=== PATIENT | male | born 1935 | race Caucasian/White ===

== ENCOUNTER → 2017-07-05 | Day surgery (SDC) | payer MEDICARE, BC ==
[2017-07-03 12:08] VITALS: BMI 18.0
[~2017-07-05] MED LIST: ALPRAZolam 0.25 MG TAB PO PRN; ASPIRIN 325 MG TAB PO STA; IODIXANOL 320 MG/ML 100 ML INTRAARTER ONE; LIDOCAINE 2% INJ 20 MG/ML SQ ONE; MIDAZOLAM 2 MG/2 ML VIAL IVP ONE; SODIUM CHLORIDE 0.9% 1,000 ML IV ONE; SODIUM CHLORIDE 0.9% 1,000 ML IV SCH; SODIUM CHLORIDE 0.9% 1,000 ML in EMPTY BAG 1 BAG IV ONE
[2017-07-05 06:53] VITALS: RESP 16; TEMP 98.2
[2017-07-05 06:53] LABS: Basophils % (A) 1 %; CH 32.3; Eosinophils # (A) 0.2 k/uL (0-0.7); Eosinophils % (A) 3 %; HCT 40.3 % (39.0-53.0); HDW 2.34; HGB 13.2 gm/dL (13.0-17.5); Luc # (Auto) 0.15; Luc % (Auto) 3; Lymphocytes # (A) 0.7 k/uL (1.0-4.8); Lymphocytes % (A) 14 %; MCH 33.2 pg (25.0-35.0); MCHC 32.6 g/dL (31.0-37.0); MCV 101.7 fL (80.0-100.0); Macrocytosis Slight; Mean Platelet Volume 7.1; Monocytes # (A) 0.4 k/uL (0-1.0); Monocytes % (A) 7 %; Neutrophils # (A) 3.7 k/uL (1.3-7.7); Neutrophils % (A) 73 %; RBC 3.96 m/uL (4.30-5.90); RDW 12.9 % (11.5-15.5); WBC 5.1 k/uL (3.8-10.6); WBC (Perox) 5.39
[2017-07-05 07:12] LABS: Anion Gap 7 mmol/L; Blood Urea Nitrogen 14 mg/dL (9-20); Carbon Dioxide 23 mmol/L (22-30); Chloride 106 mmol/L (98-107); Glucose 82 mg/dL (74-99); Non-African American GFR(MDRD) >60 (>60 ml/min/1.73 sqM); Sodium 136 mmol/L (137-145)
[2017-07-05 07:32] LABS: Potassium 5.1 mmol/L (3.5-5.1)
--- NOTE | 2017-07-05 09:05 | AN ---
ANGIOGRAPHY REPORT DATE OF SERVICE: 07/05/2017. PERFORMING PHYSICIAN: Heriberto Epperson MD, long term care pharmacist. PROCEDURE PERFORMED: 1. Abdominal aortogram. 2. Bilateral lower extremity runoff. INDICATIONS: This is a pleasant 82-year-old who is an active gentleman with a known history off peripheral tear disease and prior stenting of the right iliac artery, was experiencing bilateral lower extremity discomfort. He was diagnosed with intermittent claudication. He was brought today to undergo a peripheral angiogram. APPROACH: Right common femoral artery. COMPLICATIONS: None. LEVEL OF SEDATION: Moderate with sedation length of 20 minutes. PROCEDURE DESCRIPTION: After obtaining informed consent, the patient was brought to the cardiac cath lab technologist. The right common femoral artery was cannulated using micropuncture technique, the micropuncture wire passed easily then I placed a 5-[place] sheath in the right common femoral artery. Subsequently I did an abdominal aortogram and bilateral lower extremity runoff using 5-[place] pigtail catheter, which was initially placed at the level of the renal arteries, then it was pulled into above the bifurcation of the aorta, right and left common iliac arteries. The procedure was completed without any complications. SELECTIVE ANGIOGRAM: 1. The aorta has mild occlusive disease and mild aneurysmal dilatation as well. 2. Common iliac arteries. The right common iliac artery appeared to be stented and the left common iliac artery appeared to have a lesion, seems to be in the range of 70%. 3. External iliac arteries. The right and left external iliac arteries appear to have mild disease only. 4. Common femoral arteries. The right and left common femoral arteries are angiographically normal. 5. Profunda. The right and left profunda are patent. 6. SFA. The distal right SFA and distal left SFA by the Felix canal appear to have lesions in the range of 70% to 80%. 7. Popliteal. The right popliteal appears to have disease in the range of 70% and the left popliteal appeared to have disease in the range of 50%. 8. Below the knee. There are 2 vessel runoff below the knee bilaterally with posterior tibial and peroneal. CONCLUSION: 1. Severe disease involving the left common iliac artery with patent stent in the right common iliac artery. 2. Severe bilateral distal SFA disease. 3. Two vessel runoff below the knee bilaterally. POSTPROCEDURE MANAGEMENT: The patient will be be scheduled to undergo a PLASTER FORM MAKER of bilateral lower extremities in two separate sessions. MMODL / IJN: [id number] /
--- NOTE | 2017-07-05 11:36 | IR ---
Fluoroscopy HISTORY: Pain 2.42 minutes fluoroscopy time supplied to the referring clinician. 171 intraoperative C-arm images d ocument the procedure. See dictated report from cardiology.
[2017-07-05 15:35] VITALS: BP 124/58; PULSE 60
== END ==
LOC: CATHCVL 06:15
PROVIDERS: ATTEND Internal Medicine Interventional Cardiology
DX: I70.213 Atherosclerosis of native arteries of extremities with intermittent claudication, bilateral legs (principal); I10 Essential (primary) hypertension; I25.5 Ischemic cardiomyopathy; E78.2 Mixed hyperlipidemia; F17.210 Nicotine dependence, cigarettes, uncomplicated; Z95.1 Presence of aortocoronary bypass graft; Z82.49 Family history of ischemic heart disease and other diseases of the circulatory system; Z79.899 Other long term (current) drug therapy; Z95.810 Presence of automatic (implantable) cardiac defibrillator; Z79.02 Long term (current) use of antithrombotics/antiplatelets; Z79.82 Long term (current) use of aspirin; Z95.820 Peripheral vascular angioplasty status with implants and grafts
CPT/HCPCS: 36200; 75625; 75716; 99152; 80048; 85025; C1769 ×3; C1894; J2001; J2250; Q9967

== ENCOUNTER 2018-09-26 16:01 | Inpatient (IN) | payer MEDICARE, BC ==
--- NOTE | 2018-09-26 16:23 | ED ---
Chest Pain HPI - General Chief Complaint: Chest Pain Stated Complaint: chest pain Time Seen by Provider: 09/26/18 16:01 Source: patient, family, EMS, RN notes reviewed Mode of arrival: EMS Limitations: no limitations - History of Present Illness Initial Comments: This 83-year-old male history of heart disease who has a AICD who is been having difficulty for the past 4 days with intermittent episodes of chest pressure and palpitations. His AICD went off today while he was driving he felt dizzy he had chest pressure that was low-grade. He was given aspirin and nitroglycerin prior to arrival here he has no pain at this time. He also some blurry vision while he was driving in this incident occurred. Again per family' s been having difficulty like this for the past several days at least. His AICD is 10 years old he is scheduled get a new battery in the near future. Currently he is asymptomatic he was getting dizzy when he was in upright position and finally when he was supine. MD Complaint: chest pain, other - Related Data Home Medications Medication Instructions Recorded Confirmed Atenolol [Tenormin] 50 mg PO DAILY 05/31/15 09/26/18 Levothyroxine Sodium [Synthroid] 37.5 mcg PO DAILY 05/31/15 09/26/18 Lisinopril [Zestril] 2.5 mg PO HS 05/31/15 09/26/18 Lovastatin [Mevacor] 20 mg PO HS 05/31/15 09/26/18 Aspirin 325 mg PO DAILY 08/17/16 09/26/18 Previous Rx's Medication Instructions Recorded Clopidogrel [Plavix] 75 mg PO DAILY #30 tab 06/17/15 Allergies Allergy/AdvReac Type Severity Reaction Status Date / Time No Known Allergies Allergy Verified 09/26/18 16:44 Review of Systems ROS Statement: Those systems with pertinent positive or pertinent negative responses have been documented in the HPI. ROS Other: All systems not noted in ROS Statement are negative. EKG Findings - EKG Results: EKG: interpreted by WILLI (Pacemaker rhythm. Chamber rate was 65. Interval 186 QRS duration 174 QT since QTC 472/490) Past Medical History Past Medical History: Cancer, Hearing Disorder / Deafness, Hyperlipidemia, Hypertension, Prostate Disorder, Thyroid Disorder, Vascular Disorder Additional Past Medical History / Comment(s): PAD. HX OF BOWEL CA 2005; Hx skin cancer. DEAF LT EAR, ELEM. LEGS "TIRE EASILY WHEN I WALK," PAIN IN LEGS RADIATE TO UPPER BACK. History of Any Multi-Drug Resistant Organisms: None Reported Past Surgical History: AICD Additional Past Surgical History / Comment(s): tristian cataracts. aortogram, Stent in rt leg., COLONOSCOPY Past Anesthesia/Blood Transfusion Reactions: No Reported Reaction Date of Last Stent Placement:: 03/2016 Type of Cardiac Device: AICD Device Placement Date:: 2003 or 2004 Past Psychological History: No Psychological Hx Reported Smoking Status: Current every day smoker Past Alcohol Use History: None Reported Past Drug Use History: None Reported - Past Family History Mother Family Medical History: No Reported History General Exam - General Exam Comments Initial Comments: This is a well-developed asthenic appearing male who is awake alert oriented 3 Limitations: no limitations General appearance: alert, in no apparent distress Head exam: Present: atraumatic, normocephalic, normal inspection Eye exam: Present: normal appearance, PERRL, EOMI. Absent: scleral icterus, conjunctival injection, periorbital swelling ENT exam: Present: normal exam, mucous membranes moist Neck exam: Present: normal inspection. Absent: tenderness, meningismus, lymphadenopathy Respiratory exam: Present: normal lung sounds bilaterally. Absent: respiratory distress, wheezes, rales, rhonchi, stridor Cardiovascular Exam: Present: regular rate, normal rhythm, normal heart sounds. Absent: systolic murmur, diastolic murmur, rubs, gallop, clicks GI/Abdominal exam: Present: soft, normal bowel sounds. Absent: distended, tenderness, guarding, rebound, rigid Extremities exam: Present: normal inspection, full ROM, normal capillary refill. Absent: tenderness, pedal edema, joint swelling, calf tenderness Back exam: Present: normal inspection Neurological exam: Present: alert, oriented X3, CN II-XII intact Psychiatric exam: Present: normal affect, normal mood Skin exam: Present: warm, dry, intact, normal color. Absent: rash Course Vital Signs 09/26/18 16:09 Temperature 97.3 F L Pulse Rate 76 Respiratory 18 Rate O2 Sat by Pulse 97 Oximetry Chest Pain MDM - MDM Imaging was reviewed no acute findings. Patient was seen by Dr. Quevedo in the emergency department the patient will be admitted for evaluation of pacemaker as well as chest pain. The case is discussed with urbano who is covering for Dr. Rivas who is covering for Dr. Ng Disposition Clinical Impression: Chest pain, Pacemaker complications Disposition: ADMITTED IP TO THIS HOSP Condition: Stable Referrals: Olegario Ng DO [Primary Care Provider] - 1-2 days
[2018-09-26 17:05] LABS: Basophils % (A) 1 %; Eosinophils # (A) 0.2 k/uL (0-0.7); Eosinophils % (A) 4 %; HCT 38.8 % (39.0-53.0); HGB 12.7 gm/dL (13.0-17.5); Lymphocytes # (A) 1.3 k/uL (1.0-4.8); Lymphocytes % (A) 24 %; MCH 32.4 pg (25.0-35.0); MCHC 32.8 g/dL (31.0-37.0); MCV 98.7 fL (80.0-100.0); Mean Platelet Volume 6.9; Monocytes # (A) 0.3 k/uL (0-1.0); Monocytes % (A) 7 %; Neutrophils # (A) 3.2 k/uL (1.3-7.7); Neutrophils % (A) 62 %; Platelet Count 174 k/uL (150-450); RBC 3.93 m/uL (4.30-5.90); RDW 13.1 % (11.5-15.5); WBC 5.1 k/uL (3.8-10.6)
[2018-09-26 17:08] LABS: INR 0.9 (<1.2); Partial Thromboplastin Time 25.7 sec (22.0-30.0)
--- NOTE | 2018-09-26 17:12 | XR ---
EXAMINATION TYPE: XR chest 2V DATE OF EXAM: 09/26/2018 COMPARISON: 05/31/2015 HISTORY: Chest pain TECHNIQUE: Frontal and lateral views of the chest are obtained. FINDINGS: There is no heart failure nor confluent pneumonic infiltrate. Thoracic aorta is atheromato us. Heart size is normal. There is no pleural effusion. There is left axillary pacemaker with the alexandr d tips in the right ventricle. Bony thorax is intact. IMPRESSION: No active cardiopulmonary disease. No change.
[2018-09-26 17:14] LABS: ALT 21 U/L (21-72); AST 21 U/L (17-59); Albumin 3.4 g/dL (3.5-5.0); Alkaline Phosphatase 85 U/L (38-126); Anion Gap 4 mmol/L; Blood Urea Nitrogen 19 mg/dL (9-20); Carbon Dioxide 25 mmol/L (22-30); Chloride 112 mmol/L (98-107); Glucose 92 mg/dL (74-99); Magnesium 2.1 mg/dL (1.6-2.3); Potassium 4.5 mmol/L (3.5-5.1); Sodium 141 mmol/L (137-145); Total Bilirubin 0.3 mg/dL (0.2-1.3); Total Protein 6.3 g/dL (6.3-8.2)
[2018-09-26 17:15] LABS: Creatine Kinase 32 U/L (55-170)
[2018-09-26 17:29] LABS: Creatine Kinase MB 0.6 ng/mL (0.0-2.4); Troponin I <0.012 ng/mL (0.000-0.034)
[2018-09-26] MEDS ORDERED: NITROGLYCERIN SL TABS 0.4 MG TAB SUBLINGUAL PRN (18:58)
[2018-09-26] MEDS ORDERED: LISINOPRIL 2.5 MG TAB PO SCH (21:00)
[2018-09-26] MEDS: ATORVASTATIN 10 MG TAB PO SCH (22:34)
[2018-09-26 22:57] LABS: Creatine Kinase 26 U/L (55-170)
[2018-09-26 23:07] LABS: Creatine Kinase MB 0.5 ng/mL (0.0-2.4); Troponin I <0.012 ng/mL (0.000-0.034)
[2018-09-26 23:51] VITALS: BMI 17.5
[2018-09-27 05:43] LABS: Cholesterol 143 mg/dL (<200); HDL Cholesterol 53 mg/dL (40-60); LDL Cholesterol,Calculated 80 mg/dL (0-99); Triglycerides 49 mg/dL (<150)
[2018-09-27 06:09] LABS: Creatine Kinase 28 U/L (55-170)
[2018-09-27] MEDS: LEVOTHYROXINE 75 MCG TAB PO SCH (06:09)
[2018-09-27 06:22] LABS: Creatine Kinase MB 0.5 ng/mL (0.0-2.4); Troponin I <0.012 ng/mL (0.000-0.034)
[2018-09-27] MEDS ORDERED: ATENOLOL 50 MG TAB PO SCH (09:00)
[2018-09-27] MEDS ORDERED: ASPIRIN 325 MG TAB PO SCH (09:00)
[2018-09-27] MEDS: SODIUM CHLORIDE 0.9% 1,000 ML IV SCH (10:08)
[2018-09-27] MEDS: CLOPIDOGREL 75 MG TAB PO SCH (10:09)
[2018-09-27] MEDS: ASPIRIN 325 MG TAB PO SCH (10:09)
--- NOTE | 2018-09-27 14:17 | P.CRDCN ---
<Arianne Torres - Last Filed: 09/27/18 13:58> History of Present Illness History of present illness: This is a pleasant 83-year-old male past medical history significant for coronary artery disease s/p stenting to OM in 2006, ischemic cardiomyopathy , s/p AICD placement, peripheral vascular disease status post atherectomy of the right femoral artery, hypertension and dyslipidemia. We have been asked to see him in consultation for evaluation of pacemaker. He follows with Dr. Brock in the office. He states Sunday morning he was at home cooking camarena when he started feeling light headed, chest pressure, and vision changes. The symptoms lasted 3-4 seconds at a time and occurred 3 separate times. He went to lay down and the pressure in his chest subsided. He had no reoccurrences the rest of the day Sunday. He called office Sunday and was advised to come to ED. however he decided not to. Yesterday while driving to [employer] for errands he developed pressure in his chest with mild dizziness, not a intense as Sunday. This lasted very brief and subsided on its own. Again while he was walking through [employer] 10 minutes later he again had the same symptoms. He states he has had no recurrence since arrival to the hospital. He is seen resting comfortably in bed in no acute distress. He denies symptoms of chest discomfort, shortness of breath, dizziness or palpitations. EKG reveals AV paced rhythm. Chest x-ray is negative for an acute cardiopulmonary process. Laboratory data reviewed, WBC 5.1, hemoglobin 12.7, platelets 174, sodium 141, potassium 4.5, creatinine 0.8, magnesium 2.1, cardiac enzymes negative 3, NTproBNP 1170, LDL 80. Current cardiac medications include aspirin 325 mg daily, atenolol 50 Cynthia grams daily, Plavix 75 mg daily, lisinopril 2.5 mg daily and lovastatin 20 mg daily. Most recent echocardiogram obtained in the office reveals global concentric left ventricular systolic dysfunction with ejection fraction 30%, moderate aortic regurgitation, moderate aortic stenosis, mild to moderate mitral regurgitation and heavily calcified aortic valve. Most recent stress test performed in the office January 2018 revealed a fixed inferior and inferior apical wall defect suggestive of prior myocardial infarction with reduced ejection fraction 40% and no evidence of stress-induced ischemia. At the time of my exam: CONSTITUTIONAL: Denies fever. Denies chills. EYES: Denies blurred vision. Denies vision changes. Denies eye pain. EARS, NOSE, MOUTH & THROAT: Denies headache. Denies sore throat. Denies ear pain. CARDIOVASCULAR: Denies chest pain. Denies shortness of breath. Denies orthopnea. Denies PND. Denies palpitations. RESPIRATORY: Denies cough. GASTROINTESTINAL: Denies abdominal pain. Denies diarrhea. Denies constipation. Denies nausea. Denies vomiting. MUSCULOSKELETAL: Denies myalgias. INTEGUMENTARY: Denies pruitis. Denies rash. NEUROLOGIC: Denies numbness. Denies tingling. Denies weakness. PSYCHIATRIC: Denies anxiety. Denies depression. ENDOCRINE: Denies fatigue. Denies weight change. Denies polydipsia. Denies polyurina. GENITOURINARY: Denies burning, hematuria or urgency with micturation. HEMATOLOGIC: Denies history of anemia. Denies bleeding. Blood pressure 111/60 herat rate 66 afebrile maintaining oxygen saturation on room air GENERAL: This is a 83-year-old male in no apparent distress at the time of my examination. Frail. HEENT: Head is atraumatic, normocephalic. Pupils are equal, round. Sclerae anicteric. Conjunctivae are clear. Mucous membranes of the mouth are moist. Neck is supple. There is no jugular venous distention. No carotid bruit is heard. LUNGS: Clear to auscultation no wheezes, rales or rhonchi. No chest wall tenderness is noted on palpation or with deep breathing. HEART: Regular rate and rhythm with systolic ejection murmur at the base, no rubs or gallops. S1 and S2 heard. ABDOMEN: Soft, nontender. Bowel sounds are heard. No organomegaly noted. EXTREMITIES: No evidence of peripheral edema and no calf tenderness noted. VASCULAR: Radial and dorsalis pedis pulses palpated, no evidence of clubbing. NEUROLOGIC: Patient is awake, alert and oriented x3. ASSESSMENT Chest pain, atypical. An acute coronary event has been ruled out with negative cardiac enzymes. Dizziness and presyncope History of coronary artery disease Ischemic cardiomyopathy Status post AICD placement Hypertension Dyslipidemia Chronic nicotine dependence PLAN Acute coronary event has been ruled out. Interrogate device, Cenoplex. Obtain 2-D echocardiogram and Doppler study to assess cardiac structure and function. Check d-dimer. Check for orthostatic changes. Further recommendations to follow based upon clinical course. Thank you kindly for this consultation. Nurse Practitioner note has been reviewed, I agree with a documented findings and plan of care. Patient was seen and examined. Past Medical History Past Medical History: Cancer, Hearing Disorder / Deafness, Hyperlipidemia, Hypertension, Prostate Disorder, Thyroid Disorder, Vascular Disorder Additional Past Medical History / Comment(s): PAD. HX OF BOWEL CA 2004; Hx skin cancer. DEAF LT EAR, [place]SI[place]. LEGS "TIRE EASILY WHEN I WALK," PAIN IN LEGS RADIATE TO UPPER BACK. History of Any Multi-Drug Resistant Organisms: None Reported Past Surgical History: AICD Additional Past Surgical History / Comment(s): tristian cataracts. aortogram, Stent in rt leg., COLONOSCOPY Past Anesthesia/Blood Transfusion Reactions: No Reported Reaction Date of Last Stent Placement:: 03/2016 Type of Cardiac Device: AICD Device Placement Date:: 2003 or 2004 Past Psychological History: No Psychological Hx Reported Smoking Status: Current every day smoker Past Alcohol Use History: None Reported Additional Past Alcohol Use History / Comment(s): Has smoked since age of 18, smokes 1 PPD Past Drug Use History: None Reported - Past Family History Mother Family Medical History: No Reported History Medications and Allergies Home Medications Medication Instructions Recorded Confirmed Type Levothyroxine Sodium [Synthroid] 37.5 mcg PO DAILY 05/31/15 09/26/18 History Lovastatin [Mevacor] 20 mg PO HS 05/31/15 09/26/18 History Clopidogrel [Plavix] 75 mg PO DAILY #30 tab 06/17/15 09/26/18 Rx Aspirin 325 mg PO DAILY 08/17/16 09/26/18 History Metoprolol Tartrate 25 mg PO BID #60 tab 09/27/18 Rx Allergies Allergy/AdvReac Type Severity Reaction Status Date / Time No Known Allergies Allergy Verified 09/26/18 16:44 Physical Exam Vitals: Vital Signs Temp Pulse Pulse Resp BP BP Pulse Ox 09/27/18 07:35 97.5 F L 63 16 114/56 96 09/27/18 04:00 60 16 09/27/18 03:55 98.3 F 60 16 152/66 98 09/27/18 00:00 52 L 16 09/26/18 23:53 52 L 16 09/26/18 23:36 97.4 F L 52 L 16 128/62 99 09/26/18 22:31 97.2 F L 57 L 16 125/63 94 L 09/26/18 20:02 54 L 16 09/26/18 19:00 49 L 18 118/59 98 09/26/18 18:00 49 L 18 117/57 98 09/26/18 16:09 97.3 F L 76 18 97 Intake and Output 09/26/18 09/27/18 09/27/18 22:59 06:59 14:59 Other: Voiding Method Toilet Weight 50.802 kg Results 09/26/18 16:48 09/26/18 16:48 Cardiac Enzymes 09/26/18 09/26/18 09/26/18 Range/Units 16:48 16:48 22:09 AST 21 (17-59) U/L CK-MB (CK-2) 0.6 0.5 (0.0-2.4) ng/mL Troponin I <0.012 <0.012 (0.000-0.034) ng/mL 09/27/18 Range/Units 05:02 AST (17-59) U/L CK-MB (CK-2) 0.5 (0.0-2.4) ng/mL Troponin I <0.012 (0.000-0.034) ng/mL Coagulation 09/26/18 Range/Units 16:48 PT 10.0 (9.0-12.0) sec APTT 25.7 (22.0-30.0) sec Lipids 09/27/18 Range/Units 05:02 Triglycerides 49 (<150) mg/dL Cholesterol 143 (<200) mg/dL HDL Cholesterol 53 (40-60) mg/dL CBC 09/26/18 Range/Units 16:48 WBC 5.1 (3.8-10.6) k/uL RBC 3.93 L (4.30-5.90) m/uL Hgb 12.7 L (13.0-17.5) gm/dL Hct 38.8 L (39.0-53.0) % Plt Count 174 (150-450) k/uL Comprehensive Metabolic Panel 09/26/18 Range/Units 16:48 Sodium 141 (137-145) mmol/L Potassium 4.5 (3.5-5.1) mmol/L Chloride 112 H (98-107) mmol/L Carbon Dioxide 25 (22-30) mmol/L BUN 19 (9-20) mg/dL Creatinine 0.81 (0.66-1.25) mg/dL Glucose 92 (74-99) mg/dL Calcium 9.0 (8.4-10.2) mg/dL AST 21 (17-59) U/L ALT 21 (21-72) U/L Alkaline Phosphatase 85 (38-126) U/L Total Protein 6.3 (6.3-8.2) g/dL Albumin 3.4 L (3.5-5.0) g/dL Current Medications Generic Name Dose Route Start Last Admin Trade Name Freq PRN Reason Stop Dose Admin Aspirin 325 mg 09/27/18 09:00 Aspirin PO DAILY [facility] Atenolol 50 mg 09/27/18 09:00 Tenormin PO DAILY [facility] Atorvastatin Calcium 10 mg 09/26/18 21:00 09/26/18 22:34 Lipitor PO 10 mg HS [facility] Administration Clopidogrel Bisulfate 75 mg 09/27/18 09:00 Plavix PO DAILY [facility] Sodium Chloride 1,000 mls @ 20 mls/hr 09/26/18 19:00 Saline 0.9% IV .Q24H [facility] Levothyroxine Sodium 37.5 mcg 09/27/18 06:30 09/27/18 06:09 Synthroid PO 37.5 mcg 0630 [facility] Administration Lisinopril 2.5 mg 09/26/18 21:00 09/26/18 22:35 Zestril PO 2.5 mg HS [facility] Administration Nitroglycerin 0.4 mg 09/26/18 18:58 Nitrostat SUBLINGUAL Q5M PRN Chest Pain Intake and Output 09/26/18 09/27/18 09/27/18 22:59 06:59 14:59 Other: Voiding Method Toilet Weight 50.802 kg 09/26/18 16:48 09/26/18 16:48 <Byron Quevedo - Last Filed: 09/28/18 11:46> Physical Exam Vitals: Vital Signs Temp Pulse Pulse Pulse Pulse Resp BP 09/28/18 09:48 67 66 61 97/49 09/28/18 08:18 97.9 F 66 16 09/28/18 07:31 09/28/18 04:00 16 09/28/18 03:52 98.3 F 60 16 09/28/18 00:00 99.0 F 66 16 09/27/18 21:15 99.2 F 09/27/18 20:00 16 09/27/18 19:34 101.9 F H 68 16 09/27/18 15:44 97.5 F L 52 L 54 L 61 18 130/66 BP BP BP Pulse Ox 09/28/18 09:48 94/52 92/47 09/28/18 08:18 106/57 95 09/28/18 07:31 95 09/28/18 04:00 09/28/18 03:52 96/50 96 09/28/18 00:00 91/47 93 L 09/27/18 21:15 09/27/18 20:00 09/27/18 19:34 108/46 92 L 09/27/18 15:44 115/53 145/67 97 Intake and Output 09/27/18 09/28/18 09/28/18 22:59 06:59 14:59 Intake Total 240 Balance 240 Intake: Oral 240 Other: Voiding Method Toilet Toilet Toilet # Voids 1 2 Weight 51.3 kg Results 09/26/18 16:48 09/26/18 16:48 Current Medications Generic Name Dose Route Start Last Admin Trade Name Freq PRN Reason Stop Dose Admin Acetaminophen 650 mg 09/27/18 21:00 Tylenol Tab PO Q4HR PRN Fever and/ or Pain Aspirin 325 mg 09/27/18 09:00 09/28/18 08:24 Aspirin PO 325 mg DAILY [facility] Administration Atorvastatin Calcium 10 mg 09/26/18 21:00 09/27/18 22:22 Lipitor PO 10 mg HS [facility] Administration Clopidogrel Bisulfate 75 mg 09/27/18 09:00 09/28/18 08:24 Plavix PO 75 mg DAILY [facility] Administration Sodium Chloride 1,000 mls @ 20 mls/hr 09/26/18 19:00 09/28/18 07:56 Saline 0.9% IV Not Given .Q24H [facility] Levothyroxine Sodium 37.5 mcg 09/27/18 06:30 09/28/18 06:57 Synthroid PO 37.5 mcg 0630 [facility] Administration Metoprolol Tartrate 25 mg 09/28/18 09:00 09/28/18 08:25 Lopressor PO 25 mg BID [facility] Administration Nitroglycerin 0.4 mg 09/26/18 18:58 Nitrostat SUBLINGUAL Q5M PRN Chest Pain Intake and Output 09/27/18 09/28/18 09/28/18 22:59 06:59 14:59 Intake Total 240 Balance 240 Intake: Oral 240 Other: Voiding Method Toilet Toilet Toilet # Voids 1 2 Weight 51.3 kg 09/26/18 16:48 09/26/18 16:48
--- NOTE | 2018-09-27 15:23 | P.DS ---
Providers Date of admission: 09/26/18 18:58 Attending physician: Raquel Rivas Consults: 09/26/18 18:58 Consult Physician Urgent Consulting Provider: Byron Quevedo Consult Reason/Comments: Pacemaker evaluation Do you want consulting provider notified?: Already Contacted Primary care physician: Olegario Ng [facility] Course: Refer to my [facility] Patient Condition at Discharge: Stable Plan - Discharge Summary Discharge Rx Participant: No New Discharge Prescriptions: New Metoprolol Tartrate 25 mg PO BID #60 tab Discontinued Lisinopril [Zestril] 2.5 mg PO HS Atenolol [Tenormin] 50 mg PO DAILY No Action Lovastatin [Mevacor] 20 mg PO HS Levothyroxine Sodium [Synthroid] 37.5 mcg PO DAILY Clopidogrel [Plavix] 75 mg PO DAILY #30 tab Aspirin 325 mg PO DAILY Discharge Medication List Levothyroxine Sodium [Synthroid] 37.5 mcg PO DAILY 05/31/15 [History] Lovastatin [Mevacor] 20 mg PO HS 05/31/15 [History] Clopidogrel [Plavix] 75 mg PO DAILY #30 tab 06/17/15 [Rx] Aspirin 325 mg PO DAILY 08/17/16 [History] Metoprolol Tartrate 25 mg PO BID #60 tab 09/27/18 [Rx] Follow up Appointment(s)/Referral(s): Olegario Ng DO [Primary Care Provider] - 3 Days Discharge Disposition: HOME SELF-CARE
--- NOTE | 2018-09-27 15:23 | P.HPIM ---
History of Present Illness 83-year-old pleasant gentleman with the AICD for some heart rhythm abnormality as per the patient came in with compensative dizziness. She denied any history of can start failure patient does have history of breast disease patient also had a brief episode of chest pressure like sensation on lasted for 2 minutes nonexertional not associated with food no diaphoresis appears to be noncardiac very mild pressure like sensation nonradiating and nonpleuritic in nature. He denied any present chest pain at this time his main symptom was dizziness. Patient blood pressure is low normal although I do consider this as low for his age. Patient didn't allow will be which will be switched to metoprolol and the patient is on low-dose of lisinopril I don't see a reason for lisinopril dose will be discontinued patient does not have any history of congestive heart failure no evidence of failure at this time. She is not diabetic either. Patient denied any fever chills nausea vomiting. Denied any cough. Review of Systems REVIEW OF SYSTEMS: CONSTITUTIONAL: No fever, no malaise, no fatigue. HEENT: No recent visual problems or hearing problems. Denied any sore throat. CARDIOVASCULAR: No chest pain, orthopnea, PND, no palpitations, no syncope. PULMONARY: No shortness of breath, no cough, no hemoptysis. GASTROINTESTINAL: No diarrhea, no nausea, no vomiting, no abdominal pain. NEUROLOGICAL: No headaches, no weakness, no numbness. HEMATOLOGICAL: Denies any bleeding or petechiae. GENITOURINARY: Denies any burning micturition, frequency, or urgency. MUSCULOSKELETAL/RHEUMATOLOGICAL: Denies any joint pain, swelling, or any muscle pain. ENDOCRINE: Denies any polyuria or polydipsia. The rest of the 14-point review of systems is negative. Past Medical History Past Medical History: Cancer, Hearing Disorder / Deafness, Hyperlipidemia, Hypertension, Prostate Disorder, Thyroid Disorder, Vascular Disorder Additional Past Medical History / Comment(s): PAD. HX OF BOWEL CA 2004; Hx skin cancer. DEAF LT EAR, [place]. LEGS "TIRE EASILY WHEN I WALK," PAIN IN LEGS RADIATE TO UPPER BACK. History of Any Multi-Drug Resistant Organisms: None Reported Past Surgical History: AICD Additional Past Surgical History / Comment(s): tristian cataracts. aortogram, Stent in rt leg., COLONOSCOPY Past Anesthesia/Blood Transfusion Reactions: No Reported Reaction Date of Last Stent Placement:: 03/2016 Type of Cardiac Device: AICD Device Placement Date:: 2003 or 2004 Past Psychological History: No Psychological Hx Reported Smoking Status: Current every day smoker Past Alcohol Use History: None Reported Additional Past Alcohol Use History / Comment(s): Has smoked since age of 18, smokes 1 PPD Past Drug Use History: None Reported - Past Family History Mother Family Medical History: No Reported History Medications and Allergies Home Medications Medication Instructions Recorded Confirmed Type Levothyroxine Sodium [Synthroid] 37.5 mcg PO DAILY 05/31/15 09/26/18 History Lovastatin [Mevacor] 20 mg PO HS 05/31/15 09/26/18 History Clopidogrel [Plavix] 75 mg PO DAILY #30 tab 06/17/15 09/26/18 Rx Aspirin 325 mg PO DAILY 08/17/16 09/26/18 History Metoprolol Tartrate 25 mg PO BID #60 tab 09/27/18 Rx Allergies Allergy/AdvReac Type Severity Reaction Status Date / Time No Known Allergies Allergy Verified 09/26/18 16:44 Physical Exam Vitals: Vital Signs Temp Pulse Pulse Resp BP BP Pulse Ox 09/27/18 11:39 97.5 F L 66 16 111/64 98 09/27/18 07:35 97.5 F L 63 16 114/56 96 09/27/18 04:00 60 16 09/27/18 03:55 98.3 F 60 16 152/66 98 09/27/18 00:00 52 L 16 09/26/18 23:53 52 L 16 09/26/18 23:36 97.4 F L 52 L 16 128/62 99 09/26/18 22:31 97.2 F L 57 L 16 125/63 94 L 09/26/18 20:02 54 L 16 09/26/18 19:00 49 L 18 118/59 98 09/26/18 18:00 49 L 18 117/57 98 09/26/18 16:09 97.3 F L 76 18 97 Intake and Output 09/27/18 09/27/18 09/27/18 06:59 14:59 22:59 Intake Total 340 Balance 340 Intake: Oral 240 Other 100 Other: Voiding Method Toilet Toilet Weight 50.802 kg PHYSICAL EXAMINATION: GENERAL: The patient is alert and oriented x3, not in any acute distress. Well developed, well nourished. HEENT: Pupils are round and equally reacting to light. EOMI. No scleral icterus. No conjunctival pallor. Normocephalic, atraumatic. No pharyngeal erythema. No thyromegaly. CARDIOVASCULAR: S1 and S2 present. No murmurs, rubs, or gallops. PULMONARY: Chest is clear to auscultation, no wheezing or crackles. ABDOMEN: Soft, nontender, nondistended, normoactive bowel sounds. No palpable organomegaly. MUSCULOSKELETAL: No joint swelling or deformity. EXTREMITIES: No cyanosis, clubbing, or pedal edema. NEUROLOGICAL: Gross neurological examination did not reveal any focal deficits. SKIN: No rashes. Results CBC & Chem 7: 09/26/18 16:48 09/26/18 16:48 Labs: Abnormal Lab Results - Last 24 Hours (Table) 09/26/18 09/26/18 09/26/18 Range/Units 16:48 16:48 16:48 RBC 3.93 L (4.30-5.90) m/uL Hgb 12.7 L (13.0-17.5) gm/dL Hct 38.8 L (39.0-53.0) % Chloride 112 H (98-107) mmol/L Total Creatine Kinase 32 L (55-170) U/L Albumin 3.4 L (3.5-5.0) g/dL 09/26/18 09/27/18 Range/Units 22:09 05:02 RBC (4.30-5.90) m/uL Hgb (13.0-17.5) gm/dL Hct (39.0-53.0) % Chloride (98-107) mmol/L Total Creatine Kinase 26 L 28 L (55-170) U/L Albumin (3.5-5.0) g/dL Thrombosis Risk Factor Assmnt - Choose All That Apply Any of the Below Risk Factors Present?: No Other Risk Factors: No Other congenital or acquired thrombophilia - If yes, enter type in comment: No Thrombosis Risk Factor Assessment Level: Very Low Risk Assessment and Plan Plan: Dizziness, near syncopal episode: Probably secondary to hypotension lisinopril will be discontinued atenolol will be switched to metoprolol. Patient was evaluated by cardiology [employer] device that is AICD and pacemaker wasn't tolerated which did not show any significant abnormality if cleared by cardiology after echocardiogram probably patient can be discharged -Professor disease for which patient is on Antiplatelet therapy and statin which she will continue -Hypothyroidism: Obtain TSH level -Benign prostatic atrophy -Hyperlipidemia -Chest pain is very brief appears to be noncardiac probably will not need anything else except for echocardiogram
--- NOTE | 2018-09-27 17:07 | CT ---
EXAMINATION TYPE: CT angio chest DATE OF EXAM: 09/27/2018 4:42 PM COMPARISON: 11/14/2013 HISTORY: chest tightness CT DLP: 193.6 mGycm Automated exposure control for dose reduction was used. CONTRAST: CTA scan of the thorax is performed with IV Contrast, patient injected with 100 mL of Isovue 370, pul monary embolism protocol. There are 3-D post processed images.. FINDINGS: There is diffuse pulmonary emphysema. There is a stellate 12 mm mass in the posterior right upper lob e. There is minimal subpleural 8 mm density right lower lobe posteriorly. There is additional 10 mm p leural density at the lateral posterior right lung base. There is no pleural effusion. There is small 8 mm pleural-based density left posterior lung base. There are some peritracheal lymph nodes that measure up to 10 mm. This 10 mm right bronchial lymph no de. There is normal contrast opacification of the pulmonary arteries. I see no filling defect. Heart size is normal. There is no pericardial effusion. Thoracic aorta is atheromatous. There is no evidenc e of aneurysm or dissection. Upper abdominal images show apparent 3.5 cm oval-shaped right adrenal ma ss that has low attenuation. The bony thorax shows no compression fracture. The ribs appear intact. IMPRESSION: NO EVIDENCE OF PULMONARY EMBOLISM. COMPARED TO OLD EXAM THERE IS A NEW STELLATE RIGHT UPPER LOBE MASS SUGGESTIVE OF PRIMARY TUMOR. PULMONARY EMPHYSEMA. LARGE LOW-DENSITY RIGHT ADRENAL MASS UNCHANGED AND CONSISTENT WITH BENIGN DISEAS E. SMALL PLEURAL-BASED DENSITIES AT THE LUNG BASES INCREASED COMPARED TO OLD EXAM AND PROBABLY RELATED T O INFLAMMATORY DISEASE. ENLARGED PARATRACHEAL LYMPH NODES COMPARED TO OLD EXAM ARE NONSPECIFIC.
--- NOTE | 2018-09-27 18:10 | ECHOF ---
Referral Reason:pre syncope MEASUREMENTS -------- HEIGHT: 17.8 cm WEIGHT: 50.8 kg BP: RVIDd: 1.7 cm (< 3.3) IVSd: 0.8 cm (0.6 - 1.1) LVIDd: 3.8 cm (3.9 - 5.3) LVPWd: 0.9 cm (0.6 - 1.1) IVSs: 1.1 cm LVIDs: 3.4 cm LVPWs: 1.1 cm Ao Diam: 3.0 cm (2.0 - 3.7) AV Cusp: 0.7 cm (1.5 - 2.6) LA Diam: 2.9 cm (2.7 - 3.8) MV EXCURSION: 18.547 mm (> 18.000) MV EF SLOPE: 57 mm/s (70 - 150) EPSS: 0.7 cm MV E Jesus: 0.78 m/s MV DecT: 314 ms MV A Jesus: 0.81 m/s MV E/A Ratio: 0.96 AV maxP.34 mmHg AV meanP.26 mmHg RAP: 5.00 mmHg RVSP: 30.87 mmHg FINDINGS -------- Pacerwire seen in RV and RA. AICD This was a technically difficult study with suboptimal views. The left ventricular size is normal. Left ventricular wall thickness is normal. There is severe g lobal hypokinesis of LV . Overall left ventricular systolic function is moderate-severely impaired with, an EF between 30 - 35 %. The right ventricle is normal in size and function. The left atrial size is normal. The right atrium is normal in size. Aortic valve is trileaflet and is mildly thickened. There is mild aortic stenosis present. Peak/m da gradient across the Aortic Valve is 26.34mmHg / 16.26mmHg. The mitral valve leaflets are mildly thickened. There is trace mitral regurgitation. Trace tricuspid regurgitation present. The right ventricular systolic pressure, as measured by Dopp ler, is 30.87mmHg. Pulmonic valve appears structurally normal. The aortic root size is normal. The pericardium is normal. xx ml of Lumason was utilized for enhancement of images. CONCLUSIONS -------- 1. Pacerwire seen in RV and RA. 2. AICD 3. This was a technically difficult study with suboptimal views. 4. The left ventricular size is normal. 5. Left ventricular wall thickness is normal. 6. There is severe global hypokinesis of LV . 7. The right ventricle is normal in size and function. 8. The left atrial size is normal. 9. The right atrium is normal in size. 10. xx ml of Lumason was utilized for enhancement of images. 11. Aortic valve is trileaflet and is mildly thickened. 12. There is mild aortic stenosis present. 13. Peak/mean gradient across the Aortic Valve is 26.34mmHg / 16.26mmHg. 14. The mitral valve leaflets are mildly thickened. 15. There is trace mitral regurgitation. 16. Trace tricuspid regurgitation present. 17. The right ventricular systolic pressure, as measured by Doppler, is 30.87mmHg. 18. Pulmonic valve appears structurally normal. 19. The aortic root size is normal. 20. The pericardium is normal. MONITOR TECH: Nichole Eddy RDCS
[2018-09-27] MEDS ORDERED: ACETAMINOPHEN TAB 325 MG TAB PO PRN (21:00)
[2018-09-27] MEDS: ATORVASTATIN 10 MG TAB PO SCH (22:22)
[2018-09-28] MEDS: LEVOTHYROXINE 75 MCG TAB PO SCH (06:57)
[2018-09-28] MEDS: SODIUM CHLORIDE 0.9% 1,000 ML IV SCH ×2 (07:56→19:53)
[2018-09-28] MEDS: ASPIRIN 325 MG TAB PO SCH (08:24)
[2018-09-28] MEDS: CLOPIDOGREL 75 MG TAB PO SCH (08:24)
[2018-09-28] MEDS: METOPROLOL TARTRATE 25 MG TAB PO SCH ×2 (08:25→19:51)
--- NOTE | 2018-09-28 17:49 | P.PN ---
Subjective On-call hospitalist covering for Dr. Ng over the weekend. This is a pleasant 83 years old male with a AICD and pacemaker placement. Presents with dizziness. Without chest pain however he describes as chest pressure like sensation with lysis for a short period with no sweating or nausea vomiting or dyspnea. On admission his blood pressure was noticed to be on the low side and lisinopril was held especially patient didn't give history of heart failure or diabetes. Cardiology is already evaluated patient, is status post a device interrogation. D-dimer was elevated and CTPA was done. His was showing about 12 mm right upper lung mass which is suspicious for primary tumor associated with anginal mass about 3.5 cm. Cardiology already cleared the patient to be discharge and to call on Sunday for follow-up. I already spoke with Dr. Fan tele rn water pollution control technician and discuss the case with him for the lung mass and he recommended to send the patient outpatient for further evaluation. Patient and son on low Mr. Ata at bedside upon patient request both of them were performed with the CAT scan finding including the adrenal mass and the lung tumor of 12 mm and the possibility of being cancerous and they verbalized understanding Objective - Vital Signs Vital signs: Vital Signs Temp 98.1 F 09/28/18 16:27 Pulse 53 L 09/28/18 16:27 Resp 12 09/28/18 16:27 BP 129/70 09/28/18 16:27 Pulse Ox 98 09/28/18 16:27 Intake & Output 09/27/18 09/28/18 09/28/18 18:59 06:59 18:59 Intake Total 580 Balance 580 Weight 50.802 kg 51.3 kg Intake: Oral 480 Other 100 Other: Voiding Method Toilet Toilet Toilet # Voids 2 2 - Exam GENERAL: The patient is alert and oriented x3, not in any acute distress. Emaciated HEENT: Pupils are round and equally reacting to light. EOMI. No scleral icterus. No conjunctival pallor. Normocephalic, atraumatic. No pharyngeal erythema. No thyromegaly. CARDIOVASCULAR: S1 and S2 present. No murmurs, rubs, or gallops. PULMONARY: Chest is clear to auscultation, no wheezing or crackles. ABDOMEN: Soft, nontender, nondistended, normoactive bowel sounds. No palpable organomegaly. MUSCULOSKELETAL: No joint swelling or deformity. EXTREMITIES: No cyanosis, clubbing, or pedal edema. NEUROLOGICAL: Gross neurological examination did not reveal any focal deficits. SKIN: No rashes. - Labs CBC & Chem 7: 09/26/18 16:48 09/26/18 16:48 Assessment and Plan Assessment: Assessment and plan Dizziness, near syncopal episode: Probably secondary to hypotension lisinopril will be discontinued atenolol will be switched to metoprolol. Patient was evaluated by cardiology [facility] device is interrogated which did not show any significant abnormality if cleared by cardiology after echocardiogram patient can be discharged. Antiplatelet therapy and statin which she will continue -12 mm lung mass, as per pulmonology Dr. Fan patient can be discharged and follow-up as an outpatient. -Abdominal mass of 3.5 cm -Hypothyroidism: Obtain TSH level: 2.4 -Benign prostatic atrophy -Hyperlipidemia -Chest pain is very brief appears to be noncardiac, resolved
[2018-09-28] MEDS: ATORVASTATIN 10 MG TAB PO SCH (19:51)
[2018-09-28 21:01] LABS: Glucose,Whole Blood 86 mg/dL (75-99)
[2018-09-29] MEDS: LEVOTHYROXINE 75 MCG TAB PO SCH (06:07)
[2018-09-29] MEDS: CLOPIDOGREL 75 MG TAB PO SCH (08:37)
[2018-09-29] MEDS: ASPIRIN 325 MG TAB PO SCH (08:37)
[2018-09-29] MEDS: METOPROLOL TARTRATE 25 MG TAB PO SCH ×2 (08:37→16:02)
--- NOTE | 2018-09-29 08:59 | US ---
EXAMINATION TYPE: US venous doppler duplex LE DATE OF EXAM: 09/29/2018 8:49 AM COMPARISON: NONE CLINICAL HISTORY: Rule out DVT. Leg pain, weakness SIDE PERFORMED: Bilateral TECHNIQUE: The lower extremity deep venous system is examined utilizing real time linear array sonog meena with graded compression, doppler sonography and color-flow sonography. VESSELS IMAGED: External Iliac Vein (EIV) Common Femoral Vein Deep Femoral Vein Greater Saphenous Vein * Femoral Vein Popliteal Vein Small Saphenous Vein * Proximal Calf Veins (* superficial vessels) Right Leg: Negative for DVT Left Leg: Negative for DVT IMPRESSION: No evidence for DVT at this time.
[2018-09-29 12:25] VITALS: RESP 16
[2018-09-29 14:06] LABS: Calcium 8.7 mg/dL (8.4-10.2); Potassium 4.3 mmol/L (3.5-5.1)
[2018-09-29 16:07] VITALS: BP 106/58; PULSE 76; TEMP 98
== END 2018-09-29 16:05 | disposition home or self-care (01) | DRG 312 ==
LOC: EC 16:01 → 1SOBS 18:58 → OBSVTOIN 18:58 → INTOOBSV 18:58 → 1SOBS 22:54
PROVIDERS: ADMIT Internal Medicine; ATTEND Internal Medicine
PROC: 4B02XTZ Measurement of Cardiac Defibrillator, External Approach (ICD-10-PCS; principal; 2018-09-26)
DX: I95.2 Hypotension due to drugs (principal); R64 Cachexia; Z68.1 Body mass index [BMI] 19.9 or less, adult; T46.4X5A Adverse effect of angiotensin-converting-enzyme inhibitors, initial encounter; D49.1 Neoplasm of unspecified behavior of respiratory system; E03.9 Hypothyroidism, unspecified; E27.9 Disorder of adrenal gland, unspecified; E78.5 Hyperlipidemia, unspecified; F17.210 Nicotine dependence, cigarettes, uncomplicated; H91.92 Unspecified hearing loss, left ear; I08.0 Rheumatic disorders of both mitral and aortic valves; I10 Essential (primary) hypertension; I25.10 Atherosclerotic heart disease of native coronary artery without angina pectoris; I25.2 Old myocardial infarction; I25.5 Ischemic cardiomyopathy; I73.9 Peripheral vascular disease, unspecified; N40.0 Benign prostatic hyperplasia without lower urinary tract symptoms; Z79.02 Long term (current) use of antithrombotics/antiplatelets; Z79.82 Long term (current) use of aspirin; Z79.899 Other long term (current) drug therapy; Z85.828 Personal history of other malignant neoplasm of skin; Z95.5 Presence of coronary angioplasty implant and graft; Z95.810 Presence of automatic (implantable) cardiac defibrillator; Z95.828 Presence of other vascular implants and grafts; Z79.890 Hormone replacement therapy; Z98.42 Cataract extraction status, left eye; Z98.41 Cataract extraction status, right eye; R07.9 Chest pain, unspecified
CPT/HCPCS: 36415; 71046; 71275; 80048; 80053; 80061; 82550; 82553; 83735; 83880; 84443; 84484; 85025; 85379; 85610; 85730; 93005; 93306; 93970; 94760; 99285

== ENCOUNTER → 2018-11-09 | Outpatient (CLI) | payer MEDICARE, BC ==
--- NOTE | 2018-11-11 12:50 | PE ---
EXAMINATION TYPE: PET CT fusion skull to thigh DATE OF EXAM: 11/09/2018 COMPARISON: CTA chest 09/27/2018 Prior PET/CT: None HISTORY: Solitary pulmonary nodule TECHNIQUE: Following the intravenous administration of 11.857 mCi of F-18 FDG, whole body images are performed from the skull base to the midthigh. Images are reviewed on the computer in the coronal, axial, and sagittal planes. Reconstructed rotating images are created on independent workstation and reviewed on the computer. A localization and attenuation correction CT is performed in conjunction with the PET scan. DLP: 1 a 2.21 mGycm SCAN: Initial Blood glucose: 80 mg/dL Average Mediastinum SUV: 1.51 Average Liver SUV: 2.02 FINDINGS: NECK: No suspicious uptake THORAX: There is a focus of radiotracer uptake within the posterior right upper lobe. PET image 73. T his has an SUV value of 3.49 which can be compatible with neoplasm. There is a small pretracheal lymph node with some increase uptake, PET image 93. This has an SUV valu e of 2.17 could be an early metastatic lesion. Tiny foci of radiotracer within the superior mediastin um anterior to the ascending thoracic aorta, PET image 83, has an SUV value 1.58 which is intermediat e. Bilateral hilar uptake is present. This measures 2.61 in the left hilar region, image 99. This shamika sures 2.31 SUV value in the right hilar region, PET image 102. Some subcarinal uptake is present with an SUV value of 2.19, PET image 102. Some mild uptake is in the right infrahilar region, PET image 1 11 with an SUV value 1.68. There is a punctate nodularity within the right middle lobe adjacent to the heart border, PET image 1 21. This has some intermediate uptake measuring 1.69. Inflammatory change and early neoplasm could be considered. ABDOMEN: There may be some mild nonspecific uptake in the region of the gallbladder neck with an SUV value of 3.19. Corresponding abnormal adenopathy is not identified. PET image 151. PELVIS: No suspicious uptake. OSSEOUS STRUCTURES: No suspicious uptake LOCALIZATION CT: Some mucosal thickening is within the right maxillary sinus. The lung nodules identi fied in the posterior right upper lung field corresponds to the PET uptake. Enlarged mediastinal bernabe opathy is evident. The lymph nodes identified by PET are smaller than 1 cm. The ascending thoracic ao rta at the level of the main pulmonary artery measures 3.2 cm the main pulmonary bifurcation is 2.4 c m. Coronary artery calcification is present. The right adrenal gland is enlarged with low density measuring 2.6 transverse. No suspicious uptake i s identified on the PET was appears somewhat photopenic. Left adrenal gland is enlarged with low dens ity measuring 1.5 cm has a low SUV value 1.05. Vascular calcifications within the aorta. COMPARISON: Abnormal uptake within the nodule at the posterior right apex corresponds to the abnormal ity identified on CTA of the chest. Punctate nodular density with uptake along the right heart border , image 121, has abnormal uptake on the PET. There is a punctate nodularity, PET image 121, in the pe riphery of the right middle lobe anteriorly. SUV value is 0.34, this may be a small lymph node or tico ign nodule. Its may be below threshold for metastatic detection. IMPRESSION: 1. Posterior right apical nodule suspicious for neoplasm with elevated SUV. 2. Punctate parenchymal density along the right heart border is uptake which could be inflammatory or early metastatic disease. 3. Multiple lymph nodes with mild uptake in the intermediate range. These are not enlarged by CT crit eria. Differential would include inflammatory changes and early metastatic disease. Follow-up is shandra mmended. 4. Nonspecific uptake with elevated SUV value appears to be in the region of the gallbladder. This ma y be duodenal which could be normal.
== END ==
LOC: RADPETMAIN 15:31
PROVIDERS: ATTEND Internal Medicine Critical Care Medicine
DX: R91.1 Solitary pulmonary nodule (principal); R93.1 Abnormal findings on diagnostic imaging of heart and coronary circulation; R93.89 Abnormal findings on diagnostic imaging of other specified body structures
CPT/HCPCS: 78815; A9552

== ENCOUNTER 2019-01-02 09:20 | Emergency (ER) | payer MEDICARE, BC ==
[2019-01-02 09:30] VITALS: RESP 18; TEMP 98.2
[2019-01-02] MEDS ORDERED: HYDROcodone/APAP 5-325MG 1 EACH TAB PO STA (09:52)
--- NOTE | 2019-01-02 09:52 | ED ---
General Adult HPI - General Chief complaint: Extremity Injury, Lower Stated complaint: Hip pain Time Seen by Provider: 01/02/19 09:23 Source: patient, EMS, RN notes reviewed, old records reviewed Mode of arrival: ambulatory Limitations: no limitations - History of Present Illness Initial comments: 83 -year-old male presenting for evaluation of left hip pain and left leg pain. Patient states that for approximately the past 5 days since he had shooting pain which begins in his left buttock and hip and travels into his leg. He denies any focal numbness or weakness. Denies injury or trauma. Denies fever or chills. He is currently being treated for lung cancer with radiation. Not currently on chemotherapy. No fever or chills. Denies abdominal pain nausea vomiting. Denies chest pain or dyspnea. - Related Data Home Medications Medication Instructions Recorded Confirmed Levothyroxine Sodium [Synthroid] 37.5 mcg PO DAILY 05/31/15 01/02/19 Lovastatin [Mevacor] 20 mg PO HS 05/31/15 01/02/19 Aspirin 325 mg PO DAILY 08/17/16 01/02/19 Lisinopril [Zestril] 2.5 mg PO HS 10/11/18 01/02/19 Previous Rx's Medication Instructions Recorded Metoprolol Tartrate 25 mg PO BID #60 tab 09/27/18 Nitroglycerin Sl Tabs [Nitrostat] 0.4 mg SUBLINGUAL Q5M PRN #15 tab 09/29/18 HYDROcodone/APAP 5-325MG [[place] 1 tab PO Q6HR PRN #12 tab 01/02/19 5-325] methylPREDNISolone Dose Pack 4 mg PO DIRECTED #21 package 01/02/19 [Medrol Dose Pack] Allergies Allergy/AdvReac Type Severity Reaction Status Date / Time No Known Allergies Allergy Verified 01/02/19 09:58 Review of Systems ROS Statement: Those systems with pertinent positive or pertinent negative responses have been documented in the HPI. ROS Other: All systems not noted in ROS Statement are negative. Past Medical History Past Medical History: Cancer, Hearing Disorder / Deafness, Prostate Disorder, Thyroid Disorder, Vascular Disorder Additional Past Medical History / Comment(s): HX OF BOWEL CA 2004; Hx skin cancer. DEAF LT EAR, [place]. LEGS "TIRE EASILY WHEN I WALK," PAIN IN LEGS RADIATE TO UPPER BACK. SEE DR MARTE'S HISTORY AND PHYSICAL FOR CARDIAC HISTORY , STATES HAS BEEN DIZZY,HEPATITIS -YEARS AGO, IRREGULAR HEARTBEAT History of Any Multi-Drug Resistant Organisms: None Reported Past Surgical History: AICD Additional Past Surgical History / Comment(s): tristian cataracts. aortogram, Stent in rt leg., COLONOSCOPY Past Anesthesia/Blood Transfusion Reactions: No Reported Reaction Date of Last Stent Placement:: 03/2016 Type of Cardiac Device: AICD Device Placement Date:: 2003 or 2004 Past Psychological History: Anxiety Smoking Status: Current every day smoker Past Alcohol Use History: Rare Past Drug Use History: None Reported - Past Family History Mother Family Medical History: No Reported History General Exam Limitations: no limitations General appearance: alert, cachectic Head exam: Present: atraumatic, normocephalic Eye exam: Present: normal appearance. Absent: PERRL, EOMI ENT exam: Present: normal exam Neck exam: Present: normal inspection. Absent: tenderness, meningismus Respiratory exam: Present: normal lung sounds bilaterally. Absent: respiratory distress, wheezes Cardiovascular Exam: Present: regular rate, normal rhythm GI/Abdominal exam: Present: soft. Absent: distended, tenderness, guarding Extremities exam: Present: normal inspection, normal capillary refill, other (Normal range of motion of the left hip, 2+ femoral pulse on the left, no bony tenderness.). Absent: pedal edema, joint swelling Back exam: Present: normal inspection, full ROM. Absent: tenderness Neurological exam: Present: alert, oriented X3, CN II-XII intact. Absent: motor sensory deficit Psychiatric exam: Present: normal affect, normal mood Skin exam: Present: warm, dry, intact. Absent: cyanosis, diaphoretic Course Vital Signs 01/02/19 01/02/19 09:23 10:13 Temperature 98.2 F Pulse Rate 87 72 Respiratory 18 18 Rate Blood Pressure 173/75 147/73 O2 Sat by Pulse 100 100 Oximetry Medical Decision Making - Medical Decision Making 83-year-old male presenting with chief complaint of low back pain, left hip pain, history and physical consistent with sciatic pain. Patient has normal pulse exam, moving all extremities. CT is performed the lumbar spine which shows osteopenia, no fracture dislocation, there is disc bulging at L4-L5 a compression of nerve root at L5, this is consistent with patient's symptoms. Hip x-ray negative for fracture dislocation. After her [place], patient is feeling significantly better. Will be discharged on steroids and [place]. We'll follow up with primary care physician. Disposition Clinical Impression: Lumbosacral radiculopathy at L5, Sciatic leg pain Disposition: HOME SELF-CARE Condition: Fair Instructions (If sedation given, give patient instructions): Lumbar Radiculopathy (ED), Sciatica (ED) Prescriptions: methylPREDNISolone Dose Pack [Medrol Dose Pack] 4 mg PO DIRECTED #21 package HYDROcodone/APAP 5-325MG [[place] 5-325] 1 tab PO Q6HR PRN #12 tab PRN Reason: Pain Is patient prescribed a controlled substance at d/c from ED?: No Referrals: Olegario Ng DO [Primary Care Provider] - 1-2 days Time of Disposition: 11:20
--- NOTE | 2019-01-02 10:14 | XR ---
EXAMINATION TYPE: XR Hip Complete LT DATE OF EXAM: 01/02/2019 CLINICAL HISTORY: Left hip pain. TECHNIQUE: AP and frogleg views of the left hip are obtained. COMPARISON: PET/CT November 09, 2018. FINDINGS: There is no acute fracture/dislocation evident in the left hip. Mild to moderate axial taqueria nt space loss left hip is seen. There is some spurring from the greater trochanter redemonstrated. Va scular calcification left groin region is seen. Left-sided pelvic phleboliths are noted. IMPRESSION: As above. No significant change from prior PET/CT
--- NOTE | 2019-01-02 10:26 | CT ---
EXAMINATION TYPE: CT lumbar spine wo con DATE OF EXAM: 01/02/2019 COMPARISON: Correlation PET/CT to 06/20/2019 HISTORY: 83-year-old male Left hip pain TECHNIQUE: Contiguous axial scanning of the lumbar spine without IV contrast. Coronal and sagittal re constructions performed. CT DLP: 467.5 mGycm Automated exposure control for dose reduction was used. FINDINGS: Atherosclerotic calcifications throughout the abdominal aorta and iliac arteries with fusiform ectasi a up to 2.6 cm. Osteopenia. Degenerative changes at the bilateral SI joints. Presacral thickening is unchanged from t he patient's 11/09/2018 PET/CT where there is a history of colon cancer status surgery and chemoradiati on provided. Stable 3.9 x 2.5 cm lipid rich adrenal adenoma on the right. Vertebral body heights are preserved and alignment is maintained. Facet arthropathy mid to lower lumbar spine. Mild multilevel degenerative disc disease with disc bulg ing throughout. There is trace grade 1 anterolisthesis at L2-L3. No significant spinal canal stenosis is appreciated. On the left, changes result in a moderate neuroforaminal stenosis at L4-L5. Disc material suspected t o impinge the traversing left L5 nerve repair. On the right, changes result in mild neural foraminal stenoses from L2 to S1 levels. IMPRESSION: 1. OSTEOPENIA. NO VERTEBRAL COMPRESSION COLLAPSE. 2. MILD MULTILEVEL DEGENERATIVE DISC DISEASE AND SCATTERED FACET ARTHROPATHY. TRACE GRADE 1 ANTEROLIS THESIS AT L2-L3. 3. DISC BULGE AT L4-L5 CAUSES MODERATE LEFT NEURAL FORAMINAL STENOSIS AND IMPINGES THE TRAVERSING LEF T L5 NERVE ROOT. 4. POST SURGICAL AND POST TREATMENT CHANGES RECTUM AND PRESACRAL REGION SIMILAR TO THE PATIENT'S 2018 PET/CT.
[2019-01-02 12:13] VITALS: BP 107/72; PULSE 78
== END 2019-01-02 12:13 | disposition home or self-care (01) ==
LOC: EC 09:20
DX: M54.17 Radiculopathy, lumbosacral region (principal); M54.42 Lumbago with sciatica, left side; M85.88 Other specified disorders of bone density and structure, other site; M48.061 Spinal stenosis, lumbar region without neurogenic claudication; M51.36 Other intervertebral disc degeneration, lumbar region; M51.26 Other intervertebral disc displacement, lumbar region; M47.816 Spondylosis without myelopathy or radiculopathy, lumbar region; F17.200 Nicotine dependence, unspecified, uncomplicated; E07.9 Disorder of thyroid, unspecified; Z79.890 Hormone replacement therapy; Z79.82 Long term (current) use of aspirin; Z79.899 Other long term (current) drug therapy; Z95.810 Presence of automatic (implantable) cardiac defibrillator; Z85.828 Personal history of other malignant neoplasm of skin; Z85.038 Personal history of other malignant neoplasm of large intestine
CPT/HCPCS: 72131; 73502; 99284

== ENCOUNTER → 2019-01-28 | Outpatient (CLI) | payer MEDICARE, BC ==
--- NOTE | 2019-01-28 13:21 | XR ---
EXAMINATION TYPE: XR knee complete LT DATE OF EXAM: 01/28/2019 CLINICAL HISTORY: Chronic left knee pain TECHNIQUE: Three views of the left knee are obtained. COMPARISON: None. FINDINGS: There is no acute fracture/dislocation evident in left knee. There is joint space narrowin g of the medial compartment and small tricompartmental osteophytes. Some fragmentation of the tibial tuberosity is well corticated. Opposing surface sclerosis is seen of the medial compartment. Extensiv e atherosclerosis is present of the popliteal artery and its branches. No suprapatellar joint effusio n. Soft tissues are unremarkable. IMPRESSION: There is no acute fracture or dislocation in the left knee. Moderate tricompartmental ar thropathy most pronounced in the medial compartment with opposing surface sclerosis of the medial fem oral condyle and tibial plateau.
== END | disposition home or self-care (01) ==
LOC: RADXRMAIN 10:19
PROVIDERS: ATTEND Family Medicine
DX: M17.12 Unilateral primary osteoarthritis, left knee (principal)

== ENCOUNTER → 2019-03-14 | Outpatient (CLI) | payer MEDICARE, BC ==
[2019-03-14 16:07] LABS: African American GFR (CKD) >90 (>60 ml/min/1.73 sqM); Blood Urea Nitrogen 19 mg/dL (9-20)
--- NOTE | 2019-03-16 23:54 | CT ---
EXAMINATION TYPE: CT chest wo/w con DATE OF EXAM: 03/14/2019 COMPARISON: 11/09/2018 and 09/27/2018 HISTORY: 84-year-old male neoplasm right upper lobe TECHNIQUE: Contiguous axial scanning of the chest before and after the administration of 100 mL of Is ovue 300. Coronal/sagittal reconstructions performed. CT DLP: 588mGycm. Automatic exposure control utilized for a dose reduction. FINDINGS: Left anterior chest wall AICD generator with right atrial and 2 right ventricular leads. Heart normal size without pericardial effusion. Coronary vessel calcifications are present. Aorta normal caliber with mild atherosclerotic arch calcifications and conventional arch vessel branc roberto anatomy. 6 mm precarinal lymph node. No thoracic lymphadenopathy by CT size criteria. Prior subcarinal fullnes s and right hilar lymph node has resolved. Moderate centrilobular emphysema. Residual stellate density posterior right upper lobe measures 9 mm versus 1.5 cm, previously. 2 mm right middle lobe pulmonary nodule, axial image 49. A few additional 2 to 4 mm pulmonary nodules at the bilateral lung bases seem to be new from 09/27/20 18 and can be reassessed at 6 months. Some similar scarring along the anteromedial right mid lung. No consolidation or pleural effusion. Within the visualized upper abdomen, there is a stable 0.9 cm low-density nodule right adrenal gland with attenuation of -16 Hounsfield units compatible with a lipid rich adrenal adenoma. An additional 2.2 cm liver drainage renal adenoma on the left with attenuation of -[address] ool. Moderate atherosclerotic calcifications abdominal aorta with ectasia of at least 2.7 cm. Bones: Multiple endplate Schmorl's nodes. Mild heterogeneous appearance to the marrow space unchanged from 09/27/2018 likely normal variation. IMPRESSION: 1. Residual 9 mm spiculated nodule posterior right upper lobe versus 1.5 cm, previously. Findings sug gest residual versus treated disease. Appropriate follow-up as indicated. 2. A few 2 to 4 mm pulmonary nodules at the bilateral lung bases, new from 09/27/2018. Recommend six- month follow-up to reassess. Possible postinflammatory etiology. 3. COPD with moderate emphysema.
== END ==
LOC: RADCTMAIN 15:14
PROVIDERS: ATTEND Radiology Radiation Oncology
DX: C34.11 Malignant neoplasm of upper lobe, right bronchus or lung (principal); J43.9 Emphysema, unspecified; F17.210 Nicotine dependence, cigarettes, uncomplicated; R91.8 Other nonspecific abnormal finding of lung field; Z92.3 Personal history of irradiation
CPT/HCPCS: 82565; 84520; 71270; 36415; Q9967

== ENCOUNTER 2019-05-08 10:31 | Day surgery (SDC) | payer MEDICARE, BC ==
[2019-05-06 09:25] VITALS: BMI 18.0
[~2019-05-08 10:31] MED LIST changes: -IODIXANOL 320 MG/ML 100 ML INTRAARTER ONE; -LIDOCAINE 2% INJ 20 MG/ML SQ ONE; -MIDAZOLAM 2 MG/2 ML VIAL IVP ONE; -SODIUM CHLORIDE 0.9% 1,000 ML IV ONE; -SODIUM CHLORIDE 0.9% 1,000 ML IV SCH
[2019-05-08] MEDS ORDERED: SODIUM CHLORIDE 0.9% 1,000 ML IV ONE (11:25)
[2019-05-08 12:01] VITALS: RESP 16; TEMP 97.8
[2019-05-08 12:22] LABS: Basophils % (A) 1 %; Eosinophils # (A) 0.1 k/uL (0-0.7); Eosinophils % (A) 3 %; HCT 36.9 % (39.0-53.0); HGB 12.1 gm/dL (13.0-17.5); Lymphocytes # (A) 0.9 k/uL (1.0-4.8); Lymphocytes % (A) 20 %; MCH 32.8 pg (25.0-35.0); MCHC 32.8 g/dL (31.0-37.0); Mean Platelet Volume 7.6; Monocytes # (A) 0.4 k/uL (0-1.0); Monocytes % (A) 9 %; Neutrophils # (A) 2.7 k/uL (1.3-7.7); Neutrophils % (A) 64 %; Platelet Count 125 k/uL (150-450); RBC 3.69 m/uL (4.30-5.90); RDW 14.4 % (11.5-15.5); WBC 4.2 k/uL (3.8-10.6)
[2019-05-08] MEDS ORDERED: MIDAZOLAM PF (FBP) 2 MG/2 ML VIAL IV ONE (12:40)
[2019-05-08] MEDS ORDERED: LIDOCAINE 1% INJ 10MG/ML (20 ML MDV) SQ ONE (12:43)
[2019-05-08] MEDS ORDERED: IOPAMIDOL-250 50ML BTL INTRAARTER ONE (12:55)
[2019-05-08] MEDS ORDERED: IOPAMIDOL-250 100ML BTL INTRAARTER ONE (12:55)
[2019-05-08] MEDS ORDERED: SODIUM CHLORIDE 0.9% 1,000 ML IV SCH (13:00)
[2019-05-08 17:58] VITALS: BP 126/65; PULSE 79
--- NOTE | 2019-05-09 00:12 | AN ---
ANGIOGRAPHY REPORT DATE OF SERVICE: May 08, 2019 PERFORMING PHYSICIAN: Heriberto Epperson MD, fish bait picker. PROCEDURE PERFORMED: 1. An abdominal aortogram. 2. Bilateral lower extremities runoff. INDICATION: This is an 84-year-old gentleman with history of peripheral arterial disease as well as significant history of smoking, was experiencing bilateral lower extremity intermittent claudication severe enough and interfering with his daily activities. He cannot walk more than 200 feet before he stops because of the pain. He underwent in the past successful right iliac stenting as well as SFA stenting. APPROACH: Right common femoral artery. COMPLICATION: None. LEVEL OF SEDATION: Moderate with sedation length of 13 minutes. PROCEDURE DESCRIPTION: After obtaining an informed consent, the patient was brought to the cardiac laborer high density press. The right radial artery was cannulated using micropuncture technique and a micropuncture wire passed easily. Then I placed a 5-Welsh sheath in the right common femoral artery. I did an abdominal aortogram and bilateral lower extremities runoff using 5-Welsh pigtail catheter which was initially placed at the level of the renal arteries then it was pulled into above the bifurcation of the aorta to right and left common iliac arteries. The procedure was completed without any complication. SELECTIVE PERIPHERAL ANGIOGRAM: 1. The aorta appeared to be heavily calcified with mild to moderate diffuse disease. 2. Common iliac arteries: The right common iliac artery appeared to be patent and the left common iliac artery appeared to have a tight lesion in the range of 80% to 90%. 3. Internal iliacs: The right internal iliac artery is closed and the left internal iliac artery is patent. 4. External iliac arteries: The right external iliac artery is patent and the left external iliac artery appeared to have mild disease only. 5. Common femoral arteries: Both are angiographically normal. 6. Profunda: Both are angiographically normal. 7. SFA: The right SFA appeared to have mild to moderate diffuse disease. The left SFA appeared to have mild to moderate diffuse disease as well. 8. Popliteal: The right popliteal is stented with moderate to severe in-stent restenosis and the left popliteal appeared to have a tight lesion in the range of 80%. 9. Below the knee: There are 2 vessels runoff below the knee bilaterally with posterior tibial and peroneal. CONCLUSION: 1. Severe disease involving the left common iliac artery. 2. Severe disease involving the left popliteal. 3. Intermediate to severe disease involving the right popliteal. POSTPROCEDURE MANAGEMENT: The patient will be scheduled to undergo a FEEDER WORKER POWER UNIT OPERATOR. HARSHA / MARIA LUZN: [id number] /
--- NOTE | 2019-05-09 10:49 | IR ---
EXAMINATION TYPE: IR angio abdominal w runoff DATE OF EXAM: 05/08/2019 CLINICAL HISTORY: Left leg pain. TECHNIQUE: Fluoroscopy. COMPARISON: None. FINDINGS: Fluoroscopic guidance was provided during abdominal angiogram with lower extremity runoff procedure performed by Dr. Epperson. A total of 1.9 minutes of fluoroscopic time was utilized during the procedure and multiple cine runs are acquired. Images acquired to access via right groin with subseq uent angiogram and runoff. Please refer to procedure note for further details. IMPRESSION: As Above.
== END 2019-05-08 17:59 | disposition home or self-care (01) ==
LOC: CATHCVL 10:31
PROVIDERS: ATTEND Internal Medicine Interventional Cardiology
DX: I70.213 Atherosclerosis of native arteries of extremities with intermittent claudication, bilateral legs (principal); T82.856A Stenosis of peripheral vascular stent, initial encounter; Z95.820 Peripheral vascular angioplasty status with implants and grafts; I70.0 Atherosclerosis of aorta; F17.210 Nicotine dependence, cigarettes, uncomplicated; I10 Essential (primary) hypertension; E78.49 Other hyperlipidemia; I20.8 Other forms of angina pectoris; I25.5 Ischemic cardiomyopathy; Z95.0 Presence of cardiac pacemaker; Z95.1 Presence of aortocoronary bypass graft; Z79.82 Long term (current) use of aspirin; Z79.890 Hormone replacement therapy; Z79.899 Other long term (current) drug therapy
CPT/HCPCS: 36200; 75625; 75716; 85025; C1894; C1769 ×3; J2001; Q9966 ×2; J2250

== ENCOUNTER → 2019-06-16 | Outpatient (CLI) | payer MEDICARE, BC ==
[2019-06-16 14:38] LABS: African American GFR (CKD) >90 (>60 ml/min/1.73 sqM); Blood Urea Nitrogen 19 mg/dL (9-20)
--- NOTE | 2019-06-17 08:27 | CT ---
EXAMINATION TYPE: CT chest wo/w con DATE OF EXAM: 06/16/2019 COMPARISON: Chest CT March 14, 2019. PET/CT November 09, 2018 HISTORY: Lung neoplasm CT DLP: 557 mGycm. Automated Exposure Control for Dose Reduction was Utilized. TECHNIQUE: CT scan of the thorax is performed following without and with IV Contrast, patient inject ed with 100 mL of Isovue 300. FINDINGS: IV contrast extravasation occurred, there is suboptimal vascular opacification noted. LUNGS: Background of moderate underlying emphysematous change is redemonstrated. There is posterior r ight upper lung linear scarring with persistent spiculated 1.1 x 0.5 cm lesion. No significant enhanc ement is seen but contrast extravasation is noted. No new suspicious greater than 4 mm nodules or mas ses. Tiny bibasilar micronodules improved from prior with occasional residual micronodule for example right lower lobe axial image 38 lateral aspect. No pleural effusion or pneumothorax. MEDIASTINUM: There are no greater than 1 cm hilar or mediastinal lymph nodes. Stable prominent but chaidez bcentimeter thoracic lymph nodes in the AP window and paratracheal/paraspinal spaces near axial image 27. No cardiomegaly or pericardial effusion is seen. There is persistent multi lead pacemaker/ICD. There is persistent coronary artery calcification which is noted marker for underlying coronary mir ry disease OTHER: Moderate to severe atherosclerotic change in the abdominal aorta is present. Patient has very little intra-abdominal fat. IMPRESSION: Stable posterior right upper lobe spiculated nodule or scar like opacity. No new or enlar ging nodules or masses.
== END ==
LOC: RADCTMAIN 13:45
PROVIDERS: ATTEND Radiology Radiation Oncology
DX: C34.11 Malignant neoplasm of upper lobe, right bronchus or lung (principal); Z92.3 Personal history of irradiation; F17.210 Nicotine dependence, cigarettes, uncomplicated
CPT/HCPCS: 82565; 84520; 71270; 36415; Q9967

== ENCOUNTER 2019-06-18 09:32 | Day surgery (SDC) | payer MEDICARE, BC ==
[~2019-06-18 09:32] MED LIST changes: -ALPRAZolam 0.25 MG TAB PO PRN
[2019-06-18] MEDS ORDERED: SODIUM CHLORIDE 0.9% 1,000 ML IV ONE (11:00)
[2019-06-18] MEDS: MIDAZOLAM (PF) 2 MG/2 ML VIAL IV ONE ×2 (12:37→12:47)
[2019-06-18] MEDS ORDERED: LIDOCAINE 1% INJ 10MG/ML (20 ML MDV) SQ ONE (12:45)
[2019-06-18] MEDS ORDERED: HEPARIN SODIUM 1,000 UN/ML (10ML VL) IV ONE (12:47)
[2019-06-18] MEDS ORDERED: MIDAZOLAM (PF) 2 MG/2 ML VIAL IV ONE (13:38)
[2019-06-18] MEDS ORDERED: NITROGLYCERIN SL TABS 0.4 MG TAB SUBLINGUAL PRN (14:20)
[2019-06-18] MEDS ORDERED: CLOPIDOGREL 75 MG TAB PO ONE (14:20)
[2019-06-18] MEDS ORDERED: SODIUM CHLORIDE 0.9% 1,000 ML IV SCH (14:30)
--- NOTE | 2019-06-18 14:37 | P.PCN ---
Date of Procedure: 06/18/19 Operative Findings: PERCUTANEOUS PERIPHERAL INTERVENTION Performing physician: Heriberto Epperson M.D. Procedure performed: #1 Left lower extremity angiogram #2 An atherectomy of the left SFA using the directional atherectomy device, the Hawk one #3 Successful balloon angioplasty and stenting of the left SFA with an excellent angiographic results #4 Successful balloon angioplasty and stenting of the left common iliac artery with an excellent angiographic results #5 Selective right common femoral artery angiogram Indication: This is a pleasant 84-year-old gentleman with known peripheral arterial disease who was experiencing left leg intermittent claudication and underwent a peripheral angiogram a few weeks ago and that revealed critical disease involving the left common iliac artery as well as critical disease involving the left SFA which was extremely calcified. He was brought today to undergo an intervention of the left iliac and left SFA Approach: Right common femoral artery. Complication: None Level of sedation: Moderate with a sedation length of 87 minutes Procedure description: After obtaining an informed consent the patient was brought to the cardiac laboratory veterinarian. The right common femoral artery was cannulated using micropuncture technique then I placed a 6-Cayman Islander sheath in the right common femoral artery. At that point anticoagulation was initiated using heparin and the patient was given a total of 5000 units of heparin at the beginning of the procedure with continuous ACT monitoring throughout the procedure. I did selective the left SFA using 035 glide advantage wire with a backup support of 5-Cayman Islander rim catheter. After that I did exchange my 11 cm 6-Cay[place] Islander sheath into 70 cm 6-Cay[place] Islander sheath using the 035 glide advantage wire with multipurpose catheter use as a dilator. After that I did selective left lower extremity runoff which revealed critical disease involving the left SFA was critical disease involving the left common iliac artery. At that point I did wire the left SFA using 014 wire. I did atherectomy of the left SFA using the Hawk one. After that I did balloon angioplasty using 5 and then 6 mm balloon of the left SFA but there was severe residual stenosis and because of that I decided to stent the SFA. I did deploy 7 x 1 20 mm Zilver PDX drug-coated stent where the stent was positioned under fluoroscopy guidance and deployed under fluoroscopy guidance. It was postdilated using 6 mm balloon. The following angiogram showed grade angiographic results. For the left iliac artery I did predilatation using 6 mm balloon and then I deployed a 8 x 27 mm balloon expandable stent where the stent was positioned under fluoroscopy guidance and deployed under fluoroscopy guidance with the following angiogram showing good results with proximal H dissection without any flow-limiting. At that point I decided to stop. I did exchange my long sheath into short sheath using 035 glide advantage wire. By the end I did selective right common femoral artery angiogram. The procedure was completed without any complications Postprocedure management: - Dual antiplatelet therapy - Risk factors modifications - Follow-up with the patient
[2019-06-18] MEDS ORDERED: ATROPINE SULFATE 0.1 MG/ML 10ML SYRINGE ONE (17:57)
[2019-06-18 18:56] VITALS: BMI 16.5
[2019-06-18] MEDS ORDERED: LISINOPRIL 2.5 MG TAB PO SCH (21:00)
[2019-06-18] MEDS ORDERED: ATORVASTATIN 10 MG TAB PO SCH (21:00)
[2019-06-18] MEDS: METOPROLOL TARTRATE 25 MG TAB PO SCH (21:21)
[2019-06-19] MEDS ORDERED: LEVOTHYROXINE 75 MCG TAB PO SCH (06:30)
[2019-06-19 07:26] LABS: African American GFR (CKD) >90 (>60 ml/min/1.73 sqM); Anion Gap 7 mmol/L; Basophils % (A) 0 %; Blood Urea Nitrogen 16 mg/dL (9-20); Calcium 8.6 mg/dL (8.4-10.2); Carbon Dioxide 22 mmol/L (22-30); Chloride 109 mmol/L (98-107); Eosinophils # (A) 0.1 k/uL (0-0.7); Eosinophils % (A) 2 %; Glucose 84 mg/dL (74-99); HCT 33.8 % (39.0-53.0); HGB 11.1 gm/dL (13.0-17.5); Lymphocytes # (A) 0.5 k/uL (1.0-4.8); Lymphocytes % (A) 10 %; MCH 31.9 pg (25.0-35.0); MCHC 32.8 g/dL (31.0-37.0); MCV 97.4 fL (80.0-100.0); Mean Platelet Volume 6.7; Monocytes # (A) 0.3 k/uL (0-1.0); Monocytes % (A) 7 %; Neutrophils # (A) 3.7 k/uL (1.3-7.7); Neutrophils % (A) 78 %; Platelet Count 145 k/uL (150-450); Potassium 4.2 mmol/L (3.5-5.1); RBC 3.47 m/uL (4.30-5.90); RDW 13.1 % (11.5-15.5); Sodium 138 mmol/L (137-145); WBC 4.7 k/uL (3.8-10.6)
[2019-06-19] MEDS: METOPROLOL TARTRATE 25 MG TAB PO SCH (08:30)
[2019-06-19 08:32] VITALS: BP 122/58; PULSE 65; RESP 20; TEMP 97.6
[2019-06-19] MEDS ORDERED: CLOPIDOGREL 75 MG TAB PO SCH (09:00)
[2019-06-19] MEDS ORDERED: ASPIRIN 325 MG TAB PO SCH (09:00)
--- NOTE | 2019-06-19 09:23 | DS ---
DISCHARGE SUMMARY DATE OF ADMISSION: June 18, 2019 DATE OF DISCHARGE: June 19, 2019 BRIEF HISTORY: This is a pleasant 84-year-old gentleman with history of peripheral arterial disease who underwent yesterday successful atherectomy and angioplasty of the left SFA along with successful balloon angioplasty and stenting of the left iliac artery. The procedure was performed from the right groin which is soft and nontender and without any bruises. On followup with him today, he is asymptomatic. The right groin is soft and nontender and without any bruises. The blood work was reviewed from today as well. The patient is going to be discharged home. MMODL / IJN: [id number] /
--- NOTE | 2019-06-19 15:56 | IR ---
Fluoroscopy HISTORY: Pain in left leg 27.3 minutes fluoroscopy time supplied to the referring clinician. 3641 intraoperative C-arm images document the procedure. See dictated report from cardiology.
== END 2019-06-19 11:03 | disposition home or self-care (01) ==
LOC: CATHCVL 09:32 → 3SCARD 16:08 → CATHCVL 06-19 11:03
PROVIDERS: ATTEND Internal Medicine Interventional Cardiology
DX: I70.213 Atherosclerosis of native arteries of extremities with intermittent claudication, bilateral legs (principal); E78.5 Hyperlipidemia, unspecified; F17.210 Nicotine dependence, cigarettes, uncomplicated; R06.00 Dyspnea, unspecified; I25.5 Ischemic cardiomyopathy; I11.0 Hypertensive heart disease with heart failure; I50.9 Heart failure, unspecified; Z95.5 Presence of coronary angioplasty implant and graft; Z45.02 Encounter for adjustment and management of automatic implantable cardiac defibrillator; Z79.82 Long term (current) use of aspirin; Z79.899 Other long term (current) drug therapy; Z79.890 Hormone replacement therapy; Z95.820 Peripheral vascular angioplasty status with implants and grafts; Z95.0 Presence of cardiac pacemaker; Z79.51 Long term (current) use of inhaled steroids
CPT/HCPCS: 37221; 37227; 85347; 50433; 80048; 85025; C1894 ×2; C1769 ×4; C1887; C1725; C1714; C2623; C1874; J2001; J1644; J2250

== ENCOUNTER → 2019-09-16 | Outpatient (CLI) | payer MEDICARE, BC ==
[2019-09-16 10:31] LABS: African American GFR (CKD) >90 (>60 ml/min/1.73 sqM); Blood Urea Nitrogen 18 mg/dL (9-20); Non-African American GFR(CKD) 84 (>60 ml/min/1.73 sqM)
--- NOTE | 2019-09-16 11:30 | CT ---
EXAMINATION TYPE: CT chest wo/w con DATE OF EXAM: 09/16/2019 COMPARISON: Prior CT June 16, 2019 and older studies. PET/CT November 09, 2018. HISTORY: Lung cancer CT DLP: 601 mGycm. Automated Exposure Control for Dose Reduction was Utilized. TECHNIQUE: CT scan of the thorax is performed following without and with IV Contrast, patient inject ed with 100 ml mL of Isovue 300. FINDINGS: LUNGS: There is moderate underlying emphysematous change redemonstrated with persistent scarlike opac ity posterior right upper lung and area of prior neoplasm on current study measures approximately 10 x 3 mm even less prominent from most recent CT. There is a new tiny right pleural effusion inferiorly . Patchy bibasilar linear scarring and/or atelectasis both bases. Stable focal scarring right mid marina g anteriorly on image 29. No new suspicious greater than 4 mm nodules or masses bilaterally. Occasion al micronodule in the bases redemonstrated. MEDIASTINUM: There are no new greater than 1 cm hilar or mediastinal lymph nodes. Stable prominent b ut subcentimeter mediastinal lymph nodes. No cardiomegaly or pericardial effusion is seen. Persiste nt moderate to severe coronary artery calcification. Persistent pacemaker device. OTHER: Persistent low dense right adrenal mass measuring 4.3 x 2.4 cm axial image 59 unchanged in siz e from original PET CT where was hypermetabolic. [id number] peripheral plaque and visualized portions of abdominal aorta is redemonstrated. IMPRESSION: Redemonstration of successfully treated neoplasm posterior right upper lobe. No new suspi cious nodules or adenopathy identified.
== END | disposition home or self-care (01) ==
LOC: RADCTMAIN 09:15
PROVIDERS: ATTEND Radiology Radiation Oncology
DX: C34.11 Malignant neoplasm of upper lobe, right bronchus or lung (principal); F17.210 Nicotine dependence, cigarettes, uncomplicated; Z92.3 Personal history of irradiation
CPT/HCPCS: 36415; 71270; 82565; 84520

== ENCOUNTER 2019-11-12 06:47 | Day surgery (SDC) | payer MEDICARE, BC ==
[2019-11-11 08:38] VITALS: BMI 17.2
[~2019-11-12 06:47] MED LIST changes: +ALPRAZolam 0.25 MG TAB PO PRN
[2019-11-12 07:33] LABS: Basophils % (A) 1 %; Eosinophils # (A) 0.1 k/uL (0-0.7); Eosinophils % (A) 2 %; HCT 40.6 % (39.0-53.0); HGB 13.2 gm/dL (13.0-17.5); Lymphocytes # (A) 0.8 k/uL (1.0-4.8); Lymphocytes % (A) 18 %; MCH 32.1 pg (25.0-35.0); MCHC 32.6 g/dL (31.0-37.0); MCV 98.6 fL (80.0-100.0); Mean Platelet Volume 7.1; Monocytes # (A) 0.3 k/uL (0-1.0); Monocytes % (A) 8 %; Neutrophils % (A) 68 %; Platelet Count 196 k/uL (150-450); RBC 4.12 m/uL (4.30-5.90); RDW 13.3 % (11.5-15.5); WBC 4.3 k/uL (3.8-10.6)
[2019-11-12 07:41] LABS: African American GFR (CKD) >90 (>60 ml/min/1.73 sqM); Anion Gap 4 mmol/L; Blood Urea Nitrogen 15 mg/dL (9-20); Calcium 9.3 mg/dL (8.4-10.2); Carbon Dioxide 27 mmol/L (22-30); Chloride 107 mmol/L (98-107); Glucose 92 mg/dL (74-99); Non-African American GFR(CKD) 84 (>60 ml/min/1.73 sqM); Potassium 4.2 mmol/L (3.5-5.1); Sodium 138 mmol/L (137-145)
[2019-11-12] MEDS ORDERED: MIDAZOLAM 2 MG/2 ML VIAL IVP ONE (08:20)
[2019-11-12] MEDS ORDERED: LIDOCAINE 1% INJ 10MG/ML (20 ML MDV) SQ ONE (08:26)
[2019-11-12] MEDS ORDERED: IOPAMIDOL-370 150ML BTL INJ ONE (08:47)
[2019-11-12 09:11] VITALS: RESP 16
[2019-11-12] MEDS ORDERED: SODIUM CHLORIDE 0.9% 1,000 ML IV SCH (09:15)
--- NOTE | 2019-11-12 09:40 | LTR ---
November 12, 2019 Re: Lefty Coles Dear Dr. Ng: Mr. Lefty Coles was seen in the office recently and he was experiencing bilateral lower extremities intermittent claudication. I did perform an angiogram on him and that revealed severe disease involving his left femoral artery and severe disease involving the bilateral popliteal. Mr. Coles will be scheduled to undergo balloon angioplasty of both to be done in the next few weeks. I want to thank you for allowing me to participate in his care and please do not hesitate to call if you have any question or concerns. Sincerely, Heriberto Epperson MD MMERLINL / MARIA LUZN: [id number] /
--- NOTE | 2019-11-12 11:00 | IR ---
EXAMINATION TYPE: IR angio abdominal w runoff DATE OF EXAM: 11/12/2019 COMPARISON: NONE HISTORY: Fluoroscopy time. Fluoroscopy was provided to the referring clinician. 2.9 minutes of fluoroscopy provided.
--- NOTE | 2019-11-12 12:06 | AN ---
ANGIOGRAPHY REPORT DATE OF SERVICE: November 12, 2019 PERFORMING PHYSICIAN: Heriberto Epperson MD PROCEDURE PERFORMED: 1. Abdominal aortogram. 2. Bilateral lower extremity runoff. INDICATION: This is a pleasant, 84-year-old gentleman with history of peripheral arterial disease and prior peripheral revascularization who in the past underwent revascularization who was experiencing bilateral lower extremity intermittent claudication again. He was scheduled today to undergo an aortogram with runoff. APPROACH: Right common femoral artery. COMPLICATIONS: None. LEVEL OF SEDATION: Moderate with sedation length of 20 minutes. PROCEDURE DESCRIPTION: After obtaining an informed consent, the patient was brought to the cardiac filling station laborer. The right common femoral artery was cannulated using micropuncture technique, the micropuncture wire passed easily, then I placed a 5-Turkmen sheath at the right common femoral artery. At that point, I did an aortogram with runoff using a 5-Turkmen pigtail catheter. The procedure was completed without any complication. SELECTIVE PERIPHERAL ANGIOGRAM: 1. The aorta appeared to have mild disease only. 2. The aorta appeared also to be mildly aneurysmal. 3. Common iliac arteries: Right and left common iliac arteries appeared to have mild disease only. 4. External iliac arteries: Right and left external iliac arteries stents appeared to be patent. 5. Common femoral arteries: Right and left common femoral arteries appeared to be angiographically normal. 6. Profunda: Both profunda appeared to be patent. 7. SFA: The right SFA appeared to have a lesion just above a previous stent, seems to be in the range of 60% to 70%. The left SFA appeared to have mild disease only and the stent in it appeared to be patent. 8. Popliteal: Right popliteal appeared to have a tight lesion just below the knee. The left popliteal also appeared to be diffusely diseased up to about 70%. 9. Below the knee: There are two vessel runoff below the knee with posterior tibial and peroneal. CONCLUSION: 1. Mild aortoiliac disease with mildly aneurysmal infrarenal aorta. 2. Patent stents in both iliac arteries. 3. Severe disease involving the ostial left SFA. 4. Severe bilateral popliteal disease. 5. Two vessel runoff below the knee bilaterally with posterior tibial and peroneal. POSTPROCEDURE MANAGEMENT: The patient will be scheduled to undergo a MANAGER ARCHITECTURE of the right and left SFA to be performed in two separate sessions. MMODL / IJN: [id number] /
[2019-11-12 14:54] VITALS: BP 131/65; PULSE 60
== END 2019-11-12 15:11 | disposition home or self-care (01) ==
LOC: CATHCVL 06:47
PROVIDERS: ATTEND Internal Medicine Interventional Cardiology
DX: I71.9 Aortic aneurysm of unspecified site, without rupture (principal); I70.211 Atherosclerosis of native arteries of extremities with intermittent claudication, right leg; F17.200 Nicotine dependence, unspecified, uncomplicated; I25.10 Atherosclerotic heart disease of native coronary artery without angina pectoris; I10 Essential (primary) hypertension; E78.5 Hyperlipidemia, unspecified; I25.5 Ischemic cardiomyopathy; Z95.810 Presence of automatic (implantable) cardiac defibrillator; Z95.820 Peripheral vascular angioplasty status with implants and grafts; Z79.02 Long term (current) use of antithrombotics/antiplatelets; Z79.82 Long term (current) use of aspirin; Z79.890 Hormone replacement therapy
CPT/HCPCS: 36200; 75625; 75716; 80048; 85025; C1769 ×5; C1894; J2250; J2001; Q9967

== ENCOUNTER → 2020-04-21 | Outpatient (CLI) | payer MEDICARE, BC ==
--- NOTE | 2020-04-21 13:54 | CT ---
"EXAMINATION TYPE: CT lumbar spine wo con DATE OF EXAM: 04/21/2020 1:44 PM COMPARISON: 01/02/2019 HISTORY: Left leg pain CT DLP: 352.5 mGycm Automated exposure control for dose reduction was used. Unenhanced CT of the lumbar spine was performed. Bone and soft tissue window settings are submitted as well as coronal and sagittal reconstructions. There is a stable 3.9 x 2.5 cm right adrenal mass likely related to an adenoma. 1 cm left adrenal mas s also noted. Diffuse osteopenia noted. There is atherosclerotic change of the aorta. Vascular stents are noted. Hypertrophic changes of vertebral column. Multilevel facet arthropathy. At T12-L1 no obvious disc herniation or canal stenosis. Hypertrophic spurring in the posterior spondy losis noted. Neural foramina patent. At L1-L2 there is diffuse circumferential disc bulging with mild effacement of thecal sac. Mild facet arthropathy. Neural foramina remain patent At L2-L3 there is diffuse disc bulging with facet arthropathy and effacement of thecal sac there is m ild canal stenosis and bilateral foraminal encroachment. L3-L4 there is diffuse disc bulging or protrusion with hypertrophy of the facet joints and ligamentum flavum resulting in moderate canal stenosis and bilateral foraminal encroachment. At L4-L5 there is broad-based disc protrusion and advanced facet arthropathy with hypertrophic change s and ligamentum flavum. There is moderate to severe canal stenosis and bilateral foraminal encroachm ent. L5-S1 there is facet arthropathy. No Canal stenosis. Neural foramina patent. DeGraff sclerosis involv ing the SI joints suggestive of sacroiliitis. IMPRESSION: 1. Multilevel degenerative disc disease with multilevel disc protrusions and hypertrophic changes res ult in multilevel significant canal stenosis and foraminal encroachment. 2. Bilateral adrenal masses. 3. There appears to be evidence of calcification of the aorta with calcification extending into the l umen of a localized region within the lumbar spine at L3-L4 which could represent eccentric plaque an d calcification versus chronic localized aortic dissection which is stable dating back to the prior e xam. A Yellow level critical message alert has been initiated for Tomer Mclain MD via the [employer] | Critical Results System on 04/21/2020 1:52 PM. This message alert has been sent to Tomer moreno MD via the preferences provided by the clinician for the receipt of Radiology Critical Findings. [facility] [place] [id number]."
== END | disposition home or self-care (01) ==
LOC: RADCTMAIN 13:13
PROVIDERS: ATTEND Psychiatry & Neurology Neurology
DX: M51.36 Other intervertebral disc degeneration, lumbar region (principal); M48.061 Spinal stenosis, lumbar region without neurogenic claudication; M47.896 Other spondylosis, lumbar region; E27.9 Disorder of adrenal gland, unspecified
CPT/HCPCS: 72131